=== PATIENT | female | born 1945 | race Caucasian/White ===

== ENCOUNTER 2022-10-13 16:19 | Emergency (ER) | payer OTHER ==
[~2022-10-13] VITALS: Ht 147.3 cm; Wt 58.3 kg
[2022-10-13] MEDS ORDERED: CLONAZEPAM0.5 MG PO (16:35)
[2022-10-13] MEDS ORDERED: [UNRECOGNIZED DRUG - OTHER] (16:35)
[2022-10-13] MEDS ORDERED: INVEGA3 MG PO (16:36)
[2022-10-13] MEDS ORDERED: CYMBALTA30 MG PO (16:36)
[2022-10-13] MEDS ORDERED: KEPPRA100 MG/1 M (16:36)
[2022-10-13] MEDS ORDERED: GRALISE600 MG (16:36)
[2022-10-13] MEDS ORDERED: DITROPAN XL10 MG PO (16:37)
[2022-10-13] MEDS ORDERED: DIVALPROEX SOD125 M1 PO (16:37)
[2022-10-13] MEDS ORDERED: PEPCID AC20 MG (16:37)
[2022-10-13] MEDS ORDERED: MIRTAZAPINE30 M1 PO (16:37)
== END 2022-10-13 20:34 | disposition home or self-care (01) ==
LOC: ER 16:19
DX: N30.90 Cystitis, unspecified without hematuria (principal); B96.89 Other specified bacterial agents as the cause of diseases classified elsewhere; K57.30 Diverticulosis of large intestine without perforation or abscess without bleeding

== ENCOUNTER 2023-04-09 17:23 | Inpatient (IN) | payer OTHER ==
[~2023-04-09] VITALS: Ht 157.5 cm; Wt 56.7 kg
[~2023-04-09 17:23] MED LIST: CLONAZEPAM0.5 MG PO; CYMBALTA30 MG PO; DITROPAN XL10 MG PO; DIVALPROEX SOD125 M1 PO; GRALISE600 MG; INVEGA3 MG PO; KEPPRA100 MG/1 M; MIRTAZAPINE30 M1 PO; PEPCID AC20 MG; [UNRECOGNIZED DRUG - OTHER]
[2023-04-09] MEDS ORDERED: LEVETIRACETAM PO (17:54)
[2023-04-09] MEDS ORDERED: EXELON1 EAC1 TD (17:54)
[2023-04-09] MEDS ORDERED: DULOXETINE HCL40 MG PO (17:55)
[2023-04-09] MEDS ORDERED: INVEGA3 MG PO (17:55)
[2023-04-09] MEDS ORDERED: DIVALPROEX SOD125 M1 PO (17:56)
[2023-04-09] MEDS ORDERED: PEPCID AC20 MG PO (17:56)
[2023-04-09] MEDS ORDERED: GRALISE600 MG PO (17:56)
[2023-04-09] MEDS ORDERED: DITROPAN XL10 MG PO (17:56)
[2023-04-09] MEDS ORDERED: LEVETIRACETAM250 MG PO (17:57)
[2023-04-09] MEDS ORDERED: CLONAZEPAM0.5 MG PO (17:57)
[2023-04-14] MEDS ORDERED: AMOX-CLAV 875-1 EAC1 PO (14:49)
== END 2023-04-14 15:04 | disposition home or self-care (01) | DRG 690 ==
LOC: ER 17:23 → MEDI 23:28
PROVIDERS: ADMIT Internal Medicine; ATTEND Internal Medicine
PROC: BW24ZZZ Computerized Tomography (CT Scan) of Chest and Abdomen (ICD-10-PCS; 2023-04-09)
PROC: BW40ZZZ Ultrasonography of Abdomen (ICD-10-PCS; 2023-04-10)
PROC: 30243N1 Transfusion of Nonautologous Red Blood Cells into Central Vein, Percutaneous Approach (ICD-10-PCS; principal; 2023-04-11)
DX: N30.91 Cystitis, unspecified with hematuria (principal); R65.10 Systemic inflammatory response syndrome (SIRS) of non-infectious origin without acute organ dysfunction; R09.02 Hypoxemia; D64.89 Other specified anemias; D63.8 Anemia in other chronic diseases classified elsewhere; R74.01 Elevation of levels of liver transaminase levels; G30.1 Alzheimer's disease with late onset; F02.80 Dementia in other diseases classified elsewhere, unspecified severity, without behavioral disturbance, psychotic disturbance, mood disturbance, and anxiety; G20 Parkinson's disease; F25.9 Schizoaffective disorder, unspecified; Z74.01 Bed confinement status

== ENCOUNTER 2023-12-03 16:32 | Emergency (ER) | payer OTHER ==
[~2023-12-03] VITALS: Ht 152.4 cm; Wt 72.6 kg
[~2023-12-03 16:32] MED LIST changes: +AMOX-CLAV 875-1 EAC1 PO; +DULOXETINE HCL40 MG PO; +EXELON1 EAC1 TD; +GRALISE600 MG PO; +LEVETIRACETAM PO; +LEVETIRACETAM250 MG PO; +PEPCID AC20 MG PO
[2023-12-03 17:22] LABS: HEMATOCRIT 38.5 % (36.0-45.00); HEMOGLOBIN 13.2 g/dL (12.0-15.00); MEAN CELL VOLUME 89.1 fL (80.00-100.00); MEAN CORPUSCULAR HEMOGLOBIN 30.7 pg (27.00-32.0); MEAN CORPUSCULAR HGB CONC 34.4 g/dl (32.0-36.0); PLATELET COUNT 218 K/uL (150-450); RED BLOOD COUNT 4.32 M/uL (4.00-6.00); RED CELL DISTRIBUTION WIDTH 15.1 % (11.5-14.5)
[2023-12-03] MEDS ORDERED: DEPAKOTE SPRIN125 MG (17:23)
[2023-12-03] MEDS ORDERED: INVEGA3 MG (17:24)
[2023-12-03] MEDS ORDERED: CLONAZEPAM2 MG (17:24)
[2023-12-03] MEDS ORDERED: KEPPRA500 MG (17:24)
[2023-12-03] MEDS ORDERED: CYMBALTA60 MG (17:24)
[2023-12-03] MEDS ORDERED: NEURONTIN300 MG (17:24)
[2023-12-03] MEDS ORDERED: REMERON30 M1 (17:25)
[2023-12-03 17:37] LABS: ABG PH 7.462 (7.35-7.45); ABG pCO2 33.9 mmHg (35-45); BASE EXCESS 0.6 mmol/l; BICARBONATE 23.7 mmol/l (23-25); SaO2 97.4 %; Tco2 24.7 mmol/l; allen test SATISFACTORY; o2 32 %; puncture site RADIAL RIGHT
[2023-12-03 17:39] LABS: INR 1.07; PARTIAL THROMBOPLASTIN TIME 28.2 SECONDS (22.0-34.0); PROTHROMBIN TIME 11.2 SECONDS (9.0-11.5)
[2023-12-03 17:43] LABS: ALBUMIN 3.4 gm/dL (3.4-5.0); BILIRUBIN TOTAL 0.37 mg/dL (0.3-1.2); CREATININE SERUM 0.91 mg/dL (0.55-1.02); GFR 59.48; GLOBULINA 4.4 G/DL (2.4-3.5); POTASSIUM 4.11 mEq/L (3.5-5.1); TOTAL PROTEIN 7.8 gm/dL (6.4-8.2)
[2023-12-03 18:21] LABS: PH,URINE 5.5 (5.0-8.0); URINE APPEARANCE Clear; URINE BILIRRUBIN Negative (NEGATIVE); URINE BLOOD Large; URINE COLOR Dark Yellow; URINE GLUCOSE Negative (NEGATIVE); URINE LEUKOCYTE Trace; URINE NITRATE Negative; URINE UROBILINOGEN 0.2 E.U./dl
[2023-12-03 18:24] LABS: URINE BACTERIA 1143.9 uL (0.0-1933); URINE EPITHELIAL CELLS 22.8 uL (0.0-38.8); URINE RBC 660.8 uL (0.0-20.8); URINE WBC 19.4 uL (0.0-23.2)
[2023-12-03 18:44] LABS: URINE PROTEIN 100 (NEGATIVE)
[2023-12-03 19:05] LABS: URINE YEAST NEGATIVE /hpf
== END 2023-12-03 23:49 | disposition home or self-care (01) ==
LOC: ER 16:32
PROVIDERS: General Practice
DX: J06.9 Acute upper respiratory infection, unspecified (principal); K59.00 Constipation, unspecified; N28.1 Cyst of kidney, acquired; Z20.822 Contact with and (suspected) exposure to COVID-19; R53.1 Weakness
CPT/HCPCS: 36415; 71045; 71250; 74176; 82803; 93005; 94640; 96365; 96366; 99285; J0456; J0696; J2930; J3490

== ENCOUNTER 2023-12-11 22:35 | Inpatient (IN) | payer OTHER ==
[~2023-12-11] VITALS: Ht 162.6 cm; Wt 81.6 kg
[~2023-12-11 22:35] MED LIST changes: +CLONAZEPAM2 MG; +CYMBALTA60 MG; +DEPAKOTE SPRIN125 MG; +INVEGA3 MG; +KEPPRA500 MG; +NEURONTIN300 MG; +REMERON30 M1
[2023-12-11] MEDS ORDERED: INVEGA1.5 MG (23:16)
[2023-12-11] MEDS ORDERED: CYMBALTA20 MG PO (23:16)
[2023-12-11] MEDS ORDERED: [UNRECOGNIZED DRUG - OTHER] (23:16)
[2023-12-11] MEDS ORDERED: NEURONTIN300 MG PO (23:16)
[2023-12-11] MEDS ORDERED: [UNRECOGNIZED DRUG - OTHER] (23:16)
[2023-12-11] MEDS ORDERED: KEPPRA100 MG/1 M (23:16)
[2023-12-11] MEDS ORDERED: DEPAKOTE ER250 MG PO (23:17)
[2023-12-11] MEDS ORDERED: PEPCID AC10 MG (23:17)
[2023-12-11] MEDS ORDERED: [UNRECOGNIZED DRUG - OTHER] (23:17)
[2023-12-11] MEDS ORDERED: REMERON15 M1 PO (23:17)
[2023-12-12 02:25] LABS: ABG PH 7.487 (7.35-7.45); ABG PO2 64.6 mmHg (80-100); ABG pCO2 34.8 mmHg (35-45); BASE EXCESS 2.8 mmol/l; BICARBONATE 25.8 mmol/l (23-25); SaO2 94.2 %; Tco2 26.8 mmol/l; allen test SATISFACTORY; o2 21 %; puncture site RADIAL LEFT
[2023-12-12 02:28] LABS: HEMATOCRIT 39.8 % (36.0-45.00); HEMOGLOBIN 13.2 g/dL (12.0-15.00); MEAN CELL VOLUME 90.3 fL (80.00-100.00); MEAN CORPUSCULAR HGB CONC 33.2 g/dl (32.0-36.0); PH,URINE 5.5 (5.0-8.0); PLATELET COUNT 332 K/uL (150-450); RED BLOOD COUNT 4.41 M/uL (4.00-6.00); RED CELL DISTRIBUTION WIDTH 15.3 % (11.5-14.5); URINE APPEARANCE Clear; URINE BILIRRUBIN Negative (NEGATIVE); URINE BLOOD Moderate; URINE COLOR Yellow; URINE GLUCOSE Negative (NEGATIVE); URINE LEUKOCYTE Trace; URINE NITRATE Negative; URINE PROTEIN Negative (NEGATIVE); URINE UROBILINOGEN 0.2 E.U./dl
[2023-12-12 02:32] LABS: URINE BACTERIA 8.8 uL (0.0-1933); URINE EPITHELIAL CELLS 2.9 uL (0.0-38.8); URINE RBC 91.8 uL (0.0-20.8)
[2023-12-12 02:48] LABS: ALBUMIN 2.9 gm/dL (3.4-5.0); BILIRUBIN TOTAL 0.48 mg/dL (0.3-1.2); CALCIUM 9.1 mg/dL (8.5-10.1); CREATININE SERUM 0.86 mg/dL (0.55-1.02); GFR 63.49; GLOBULINA 3.6 G/DL (2.4-3.5); POTASSIUM 4.05 mEq/L (3.5-5.1); TOTAL PROTEIN 6.5 gm/dL (6.4-8.2)
[2023-12-13 06:12] LABS: HEMOGLOBIN 11.2 g/dL (12.0-15.00); MEAN CELL VOLUME 90.4 fL (80.00-100.00); MEAN CORPUSCULAR HEMOGLOBIN 29.8 pg (27.00-32.0); PLATELET COUNT 292 K/uL (150-450); RED BLOOD COUNT 3.76 M/uL (4.00-6.00); RED CELL DISTRIBUTION WIDTH 15.8 % (11.5-14.5)
[2023-12-13 06:37] LABS: ERYTHROCYTE SEDIMENTATION RATE 51 mm/hr
[2023-12-13 07:01] LABS: ALBUMIN 2.4 gm/dL (3.4-5.0); BILIRUBIN TOTAL 0.29 mg/dL (0.3-1.2); CALCIUM 8.3 mg/dL (8.5-10.1); CREATININE SERUM 0.58 mg/dL (0.55-1.02); GFR 100.02; MAGNESIUM 2.3 mg/dL (1.8-2.4); PHOSPHOROUS 2.8 mg/dL (2.5-4.9); POTASSIUM 3.57 mEq/L (3.5-5.1); TOTAL PROTEIN 5.4 gm/dL (6.4-8.2)
[2023-12-13 07:02] LABS: C-REACTIVE PROTEIN 9.56 MG/DL (0.00-0.29)
[2023-12-13 10:02] LABS: PROCALCITONIN 0.065 ng/ml (0.020-0.080)
[2023-12-14 08:18] LABS: ALBUMIN 2.3 gm/dL (3.4-5.0); BILIRUBIN TOTAL 0.28 mg/dL (0.3-1.2); CALCIUM 7.7 mg/dL (8.5-10.1); CREATININE SERUM 0.51 mg/dL (0.55-1.02); GFR 116.03; GLOBULINA 3.2 G/DL (2.4-3.5); MAGNESIUM 2.4 mg/dL (1.8-2.4); PHOSPHOROUS 2.4 mg/dL (2.5-4.9); POTASSIUM 3.86 mEq/L (3.5-5.1); TOTAL PROTEIN 5.5 gm/dL (6.4-8.2)
[2023-12-14 08:22] LABS: C-REACTIVE PROTEIN 11.6 MG/DL (0.00-0.29)
[2023-12-14 08:45] LABS: MYCOPLASMA PNEUMONIAE IGM NON REACTIVE (NO REACTIVE)
[2023-12-14 09:24] LABS: HEMATOCRIT 33.5 % (36.0-45.00); MEAN CELL VOLUME 91.1 fL (80.00-100.00); MEAN CORPUSCULAR HEMOGLOBIN 29.9 pg (27.00-32.0); MEAN CORPUSCULAR HGB CONC 32.8 g/dl (32.0-36.0); PLATELET COUNT 312 K/uL (150-450); RED BLOOD COUNT 3.68 M/uL (4.00-6.00); RED CELL DISTRIBUTION WIDTH 15.8 % (11.5-14.5)
[2023-12-15 07:29] LABS: HEMOGLOBIN 11.3 g/dL (12.0-15.00); MEAN CELL VOLUME 90.3 fL (80.00-100.00); MEAN CORPUSCULAR HGB CONC 33.2 g/dl (32.0-36.0); PLATELET COUNT 312 K/uL (150-450); RED BLOOD COUNT 3.76 M/uL (4.00-6.00)
[2023-12-15 08:08] LABS: ALBUMIN 2.3 gm/dL (3.4-5.0); BILIRUBIN TOTAL 0.29 mg/dL (0.3-1.2); CALCIUM 8.4 mg/dL (8.5-10.1); CREATININE SERUM 0.55 mg/dL (0.55-1.02); GFR 106.35; GLOBULINA 3.2 G/DL (2.4-3.5); MAGNESIUM 2.4 mg/dL (1.8-2.4); POTASSIUM 3.61 mEq/L (3.5-5.1); TOTAL PROTEIN 5.5 gm/dL (6.4-8.2)
[2023-12-16 06:25] LABS: HEMATOCRIT 33.7 % (36.0-45.00); HEMOGLOBIN 11.1 g/dL (12.0-15.00); MEAN CELL VOLUME 89.5 fL (80.00-100.00); MEAN CORPUSCULAR HEMOGLOBIN 29.6 pg (27.00-32.0); MEAN CORPUSCULAR HGB CONC 33.1 g/dl (32.0-36.0); PLATELET COUNT 311 K/uL (150-450); RED BLOOD COUNT 3.76 M/uL (4.00-6.00); RED CELL DISTRIBUTION WIDTH 16.2 % (11.5-14.5)
[2023-12-16 07:30] LABS: ALBUMIN 2.3 gm/dL (3.4-5.0); BILIRUBIN TOTAL 0.34 mg/dL (0.3-1.2); CALCIUM 8.4 mg/dL (8.5-10.1); CREATININE SERUM 0.54 mg/dL (0.55-1.02); GFR 108.62; PHOSPHOROUS 3.3 mg/dL (2.5-4.9); POTASSIUM 3.61 mEq/L (3.5-5.1); TOTAL PROTEIN 5.3 gm/dL (6.4-8.2)
[2023-12-16] MEDS ORDERED: AVIDOXY100 MG PO (12:13)
== END 2023-12-16 14:43 | disposition home or self-care (01) | DRG 871 ==
LOC: ER 22:35 → MEDI 12-12 13:20
PROVIDERS: General Practice; Internal Medicine Infectious Disease; ADMIT Internal Medicine; ATTEND Internal Medicine
PROC: BW24ZZZ Computerized Tomography (CT Scan) of Chest and Abdomen (ICD-10-PCS; principal; 2023-12-12)
PROC: BW21ZZZ Computerized Tomography (CT Scan) of Abdomen and Pelvis (ICD-10-PCS; 2023-12-13)
DX: A41.9 Sepsis, unspecified organism (principal); J69.0 Pneumonitis due to inhalation of food and vomit; J98.11 Atelectasis; N39.0 Urinary tract infection, site not specified; R65.10 Systemic inflammatory response syndrome (SIRS) of non-infectious origin without acute organ dysfunction; F03.90 Unspecified dementia, unspecified severity, without behavioral disturbance, psychotic disturbance, mood disturbance, and anxiety; G20.C Parkinsonism, unspecified; F02.80 Dementia in other diseases classified elsewhere, unspecified severity, without behavioral disturbance, psychotic disturbance, mood disturbance, and anxiety; J47.9 Bronchiectasis, uncomplicated; D64.9 Anemia, unspecified; N28.1 Cyst of kidney, acquired

== ENCOUNTER 2025-01-04 08:20 | Emergency (ER) | payer OTHER ==
[~2025-01-04] VITALS: Ht 152.4 cm; Wt 56.7 kg
[~2025-01-04 08:20] MED LIST changes: +AVIDOXY100 MG PO; +CYMBALTA20 MG PO; +DEPAKOTE ER250 MG PO; +INVEGA1.5 MG; +NEURONTIN300 MG PO; +PEPCID AC10 MG; +REMERON15 M1 PO; +[UNRECOGNIZED DRUG - OTHER]; +[UNRECOGNIZED DRUG - OTHER]
== END 2025-01-04 11:11 | disposition home or self-care (01) ==
LOC: ER 08:20
DX: S70.02XA Contusion of left hip, initial encounter (principal); W19.XXXA Unspecified fall, initial encounter; Y93.89 Activity, other specified; Y92.018 Other place in single-family (private) house as the place of occurrence of the external cause; Y99.9 Unspecified external cause status; I10 Essential (primary) hypertension; G30.9 Alzheimer's disease, unspecified; F02.80 Dementia in other diseases classified elsewhere, unspecified severity, without behavioral disturbance, psychotic disturbance, mood disturbance, and anxiety; M85.88 Other specified disorders of bone density and structure, other site

== ENCOUNTER 2025-08-03 22:57 | Emergency (ER) | payer OTHER ==
[~2025-08-03] VITALS: Ht 157.5 cm; Wt 68.0 kg
[2025-08-03] MEDS ORDERED: REMERON30 M1 PO (23:13)
[2025-08-04 00:56] LABS: BASO % 0.8 % (0.1-1.2); EOS # 0.60 (0.04-0.54); EOS % 6.7 % (0.7-7.0); LYMPH # 2.84 (1.18-3.74); LYMPH % 31.8 % (19.3-53.1); MEAN PLATELET VOLUME 11.00 fl (9.4-12.4); MONO # 0.96 (0.24-0.82); MONO % 10.8 % (4.7-12.5); NEUT # 4.42 (1.56-6.13); NEUT % 49.6 % (34.0-71.1); RED CELL DISTRIBUTION WIDTH 14.2 % (11.6-14.4)
[2025-08-04 01:39] LABS: COVID-19 AG NEGATIVE (NEGATIVE)
[2025-08-04] MEDS ORDERED: ZYNCOF 20-400120 ML PO (03:02)
== END 2025-08-04 03:48 ==
LOC: ER 22:57
PROVIDERS: General Practice
DX: R05.9 Cough, unspecified (principal); Z20.822 Contact with and (suspected) exposure to COVID-19; G20.A1 Parkinson's disease without dyskinesia, without mention of fluctuations